=== PATIENT | male | born 1955 | race Caucasian/White ===

== ENCOUNTER 2025-01-18 09:47 | Day surgery (SDC) | payer MEDICARE ==
[2025-01-14 11:35] LABS: BASOPHILS % 0.8 % (0.0-1.0); EOSINOPHILS % 4.2 % (0.0-6.0); LYMPHOCYTES % 20.0 % (18.0-39.1); MONOCYTES % 5.2 % (4.4-11.3); NEUTROPHILS % 69.1 % (38.7-80.0); RED CELL DISTRIBUTION WIDTH 15.7 % (11.7-14.4)
[2025-01-14 12:54] LABS: EST GLOMERULAR FILTRATION RATE 69.0 ML/MIN (>=60)
[2025-01-18] VITALS (10 sets, daily range): BP systolic 78–105; BP diastolic 47–74; PULSE 76–90; RESP 12–18; TEMP 97.8; O2SAT 97–100
[~2025-01-18] VITALS: Ht 185.4 cm; Wt 129.7 kg
[~2025-01-18 09:47] MED LIST: ATROVENT HFA12.9 GM INH; BUMETANIDE1 MG PO; DULOXETINE HCL60 MG; GLIMEPIRIDE2 MG PO; ISOSORBIDE MONO30 MG PO; LOSARTAN POTASS25 MG PO; NEURONTIN400 MG PO; NITROGLYCERIN0.4 MG SL; PANTOPRAZOLE SO40 MG PO; PLAVIX75 MG PO; PREDNISONE20 MG PO; RANOLAZINE ER500 MG; SOMA350 MG PO; VENTOLIN HFA18 GM INH
[2025-01-18] MEDS ORDERED: SODIUM CHLORIDE 0.9% 1000ML 1,000 ML ONE (10:29)
[2025-01-18] MEDS: ALPRAZOLAM 0.5 MG TAB ONE (10:44)
[2025-01-18] MEDS: DIPHENHYDRAMINE HCL 25 MG CAP ONE (10:45)
[2025-01-18] MEDS ORDERED: FENTANYL CITRATE/PF 100MCG/2 ML INJ ONE (11:53)
[2025-01-18] MEDS ORDERED: HEPARIN SOD (PORCINE) 1000 UNIT/ML 30ML ONE (11:53)
[2025-01-18] MEDS ORDERED: LIDOCAINE HCL 2% LOCAL 20 ML VIAL ONE (11:53)
[2025-01-18] MEDS ORDERED: MIDAZOLAM HCL 2 MG/2 ML VIAL ONE (11:53)
[2025-01-18] MEDS ORDERED: VERAPAMIL HCL 2.5 MG/ML 2 ML VIAL ONE (11:53)
[2025-01-18] MEDS ORDERED: IOPAMIDOL 370 MG/ML 100 ML INFUS..BTL INJ ONE (11:54)
[2025-01-18] MEDS ORDERED: HEPARIN SOD/SOD CHLORIDE 2,000 ML ONE (11:54)
[2025-01-18] MEDS ORDERED: NITROGLYCERIN/D5W 200 MCG/ML 250 ML ONE (11:54)
== END 2025-01-18 15:30 | disposition home or self-care (01) ==
LOC: CATH LAB 09:47
PROVIDERS: ATTEND Internal Medicine Interventional Cardiology
DX: I25.110 Atherosclerotic heart disease of native coronary artery with unstable angina pectoris (principal); I77.1 Stricture of artery; Z95.5 Presence of coronary angioplasty implant and graft; I73.9 Peripheral vascular disease, unspecified; R93.1 Abnormal findings on diagnostic imaging of heart and coronary circulation; Z01.812 Encounter for preprocedural laboratory examination; Z79.02 Long term (current) use of antithrombotics/antiplatelets; Z79.84 Long term (current) use of oral hypoglycemic drugs; Z79.899 Other long term (current) drug therapy
CPT/HCPCS: 36415 ×2; 76937; 80053; 82948; 85025; 93458; C1769; C1887; J1644; J2003; J2250; J3010; J7030; Q9967; 99152; 99153